=== PATIENT | female | born 1985 | race Caucasian/White ===

== ENCOUNTER 2018-04-08 14:09 | Emergency (ER) | payer OTHER ==
[2018-04-08 14:16] VITALS: O2SAT 100
[2018-04-08] MEDS ORDERED: Sodium Chloride 0.9% 1,000 ML IV STA (15:11)
--- NOTE | 2018-04-08 16:08 | ED PDOC ---
HPI: Headache Time Seen by Provider: 04/08/18 15:01 Chief Complaint (Nursing): Headache Chief Complaint (Provider): Headache History Per: Patient History/Exam Limitations: no limitations Onset/Duration Of Symptoms: Hrs Current Symptoms Are (Timing): Still Present Additional Complaint(s): 32 y/o female with no significant PMHx presents to the ED for evaluation of a headache, onset one day ago. Patient reports pain is located in the back of the head radiating down the neck, back and right leg. Patient report pain is associated with eye pain, urinary frequency, generalized weakness and dizziness/lightheadedness. Patient describes pain in right distal foot as a burn ing sensation. Patient reports of last taking Tylenol last night. Otherwise, patient denies abdominal pain, constipation, leg weakness, chest pain, shortness of breath, rhinorrhea, numbness, incontinence, injury and sick contacts. No constipation. Headaches is not worst in her life. PMD: non [facility] Provider Past Medical History Reviewed: Historical Data, Nursing Documentation, Vital Signs Vital Signs: Last Vital Signs Temp 98.6 F 04/08/18 14:15 Pulse 90 04/08/18 14:15 Resp 18 04/08/18 14:15 BP 154/87 H 04/08/18 14:15 Pulse Ox 100 04/08/18 14:15 - Medical History PMH: No Chronic Diseases - Surgical History Surgical History: No Surg Hx - Family History Family History: States: Unknown Family Hx - Living Arrangements Living Arrangements: With Family - Home Medications Home Medications: Ambulatory Orders Medication Instructions Recorded Diazepam [Valium] 2 mg PO BID PRN #6 tab 04/08/18 Ibuprofen [Motrin] 600 mg PO TID 7 Days tab 04/08/18 - Allergies Allergies/Adverse Reactions: Allergies Allergy/AdvReac Type Severity Reaction Status Date / Time No Known Allergies Allergy Verified 04/08/18 14:17 Review of Systems ROS Statement: Except As Marked, All Systems Reviewed And Found Negative Constitutional: Positive for: Weakness Eyes: Positive for: Pain Cardiovascular: Negative for: Chest Pain Respiratory: Negative for: Shortness of Breath Gastrointestinal: Negative for: Abdominal Pain, Constipation Genitourinary Female: Positive for: Frequency Musculoskeletal: Positive for: Neck Pain, Back Pain, Leg Pain (R) Neurological: Positive for: Headache, Dizziness (LIGHTHEADEDNESS). Negative for: Weakness, Numbness Physical Exam - Reviewed Nursing Documentation Reviewed: Yes Vital Signs Reviewed: Yes - Physical Exam Appears: Positive for: No Acute Distress Head Exam: Positive for: ATRAUMATIC, NORMAL INSPECTION, NORMOCEPHALIC Skin: Positive for: Normal Color, Warm, Dry Eye Exam: Positive for: Normal appearance, EOMI, PERRL ENT: Positive for: Normal ENT Inspection. Negative for: Nasal Congestion Neck: Positive for: Trachea Midline. Negative for: Normal (Muscle tightness to the back of the neck.) Cardiovascular/Chest: Positive for: Regular Rate, Rhythm. Negative for: Murmur Respiratory: Positive for: Normal Breath Sounds. Negative for: Respiratory Distress Pulses-Dorsalis Pedis (L): 2+ Pulses-Dorsalis Pedis (R): 2+ Gastrointestinal/Abdominal: Positive for: Soft. Negative for: Tenderness Back: Positive for: Other (Mild tenderness to the right lower back. Muscle tightness to the right lower back.) Extremity: Positive for: Normal ROM (of all extremities). Negative for: Tenderness, Pedal Edema, Calf Tenderness, Deformity Neurologic/Psych: Positive for: Alert, yoga teacher II-XII, Oriented (x3). Negative for: Motor/Sensory Deficits, Aphasia, Facial Droop - Laboratory Results Result Diagrams: 04/08/18 15:57 04/08/18 15:57 Lab Results: no acute - ECG ECG: Positive for: Interpreted By Me, Viewed By Ne ECG Rhythm: Positive for: Normal QRS, Normal ST Segment, Sinus Rhythm O2 Sat by Pulse Oximetry: 100 (RA) Pulse Ox Interpretation: Normal - CT Scan/US ct Other Rad Studies (CT/US): Read By Radiologist Other Rad Interpretation: no acute - Progress ED Course And Treament: 1733: Stable. AAOx3. Pain free. Tolerated PO. Fu with pcp. Likely muscle spasms. Medical Decision Making Medical Decision Making: Time: 1511 Plan: -- CT Cervical Spine w/o Contrast -- CT Head w/o Contrast -- EKG -- CMP -- Troponin I -- ED Urine Dipstick -- ED Urine -- CBC with Differentials -- Sodium Chloride IV 1000 mls/hr -- Toradol 15 mg IVP -- Valium 5 mg PO Scribe Attestation: Documented by Anel Rose, acting as a scribe for Diony Gutierrez MD. Provider Scribe Attestation: All medical record entries made by the Scribe were at my direction and personally dictated by me. I have reviewed the chart and agree that the record accurately reflects my personal performance of the history, physical exam, medical decision making, and the department course for this patient. I have also personally directed, reviewed, and agree with the discharge instructions and disposition. Disposition - Clinical Impression Clinical Impression: Muscle spasm, Dizziness - Patient ED Disposition Is Patient to be Admitted: No Counseled Patient/Family Regarding: Studies Performed, Diagnosis, Need For Followup, Rx Given - Disposition Referrals: [facility] [Outside] - 04/09/18 Disposition: Routine/Home Disposition Time: 17:37 Condition: STABLE Additional Instructions: Return if not better in 3 days. Prescriptions: Diazepam [Valium] 2 mg PO BID PRN #6 tab PRN Reason: Muscle Spasm Ibuprofen [Motrin] 600 mg PO TID 7 Days tab Instructions: Dizziness, Nonvertigo, (DC), Muscle Spasms (DC)
[2018-04-08 16:27] LABS: BASO % 0.5 % (0.0-2.0); EOS # 0.1 K/uL (0.0-0.7); EOS % 1.1 % (0.0-4.0); HEMOGLOBIN 13.5 g/dL (12.0-16.0); LYMPH # 2.5 K/uL (1.0-4.3); LYMPH % 33.7 % (20.0-40.0); MEAN CELL VOLUME 80.2 fl (81.0-99.0); MEAN CORPUSCULAR HGB CONC 32.4 g/dL (33.0-37.0); MEAN PLATELET VOLUME 9.1 fl (7.2-11.7); MONO # 0.5 K/uL (0.0-0.8); MONO % 6.6 % (0.0-10.0); NEUT # 4.2 K/uL (1.8-7.0); NEUT % 58.1 % (50.0-75.0); RBC 5.2 Mil/uL (3.80-5.20); WHITE BLOOD COUNT 7.3 K/uL (4.8-10.8)
--- NOTE | 2018-04-08 16:30 | CT ---
Date of service: 04/08/2018 PROCEDURE: CT HEAD WITHOUT CONTRAST. HISTORY: headache COMPARISON: None available. TECHNIQUE: Axial computed tomography images were obtained through the head/brain without intravenous contrast. Radiation dose: Total exam DLP = 815.4 mGy-cm. This CT exam was performed using one or more of the following dose reduction techniques: Automated exposure control, adjustment of the mA and/or kV according to patient size, and/or use of iterative reconstruction technique. FINDINGS: HEMORRHAGE: No intracranial hemorrhage. BRAIN: Normal napoles-white matter differentiation and density are appreciated throughout the cerebrum and cerebellum with the brainstem appearing unremarkable as well. There is no mass effect. There is no suspicious extra-axial fluid collection and the midline brain anatomy appears diffusely unremarkable. VENTRICLES: Unremarkable. No hydrocephalus. CALVARIUM: Unremarkable. PARANASAL SINUSES: Unremarkable as visualized. No significant inflammatory changes. MASTOID AIR CELLS: Unremarkable as visualized. No inflammatory changes. OTHER FINDINGS: None. IMPRESSION: Unremarkable noncontrast head CT.
--- NOTE | 2018-04-08 16:44 | CT ---
Date of service: 04/08/2018 PROCEDURE: CT Cervical Spine without contrast HISTORY: neck pain COMPARISON: None available. TECHNIQUE: Axial computed tomography images were obtained of the cervical spine without the use of intravenous contrast. Coronal and sagittal reformatted images were created and reviewed. Radiation dose: Total exam DLP = 363.87 mGy-cm. This CT exam was performed using one or more of the following dose reduction techniques: Automated exposure control, adjustment of the mA and/or kV according to patient size, and/or use of iterative reconstruction technique. FINDINGS: VERTEBRAE: No fracture. Straightened curvature without spondylolisthesis. No destructive bony lesion. DISCS/SPINAL CANAL/NEURAL FORAMINA: No significant central canal or neural foraminal stenosis. Discs heights are grossly preserved. Limited circumferential disc osteophyte complex seen at C5-6 without stenosis resulting. PREVERTEBRAL AND PARASPINAL SOFT TISSUES: Unremarkable. OTHER FINDINGS: Incidental 6 mm nodule or cyst right lobe thyroid gland. IMPRESSION: Straightening the cervical curvature without fracture or spondylolisthesis appreciable. Limited disc osteophyte complex C5-6 without central canal stenosis evident. Incidental 6 mm nodule or cyst right lobe thyroid gland.
[2018-04-08 16:50] LABS: ALB/GLOB RATIO 1.3 (1.0-2.1); ALBUMIN 4.5 g/dL (3.5-5.0); ALT/SGPT 18 U/L (9-52); AST/SGOT 20 U/L (14-36); BLOOD UREA NITROGEN 14 mg/dl (7-17); CALCIUM 9.7 mg/dL (8.4-10.2); GFR NON-AFRICAN AMERICAN > 60
[2018-04-08 18:13] VITALS: BP 114/69; PULSE 86; RESP 20; TEMP 98.1
--- NOTE | 2018-04-09 06:48 | CARD ---
APPROVED REPORT Date of service: 04/08/2018 EKG Measurement Heart [id number] <Conclusion> Normal sinus rhythm Normal ECG
== END 2018-04-08 18:27 | disposition home or self-care (01) ==
LOC: H.ER 14:09
DX: R42 Dizziness and giddiness (principal); M62.838 Other muscle spasm; E04.1 Nontoxic single thyroid nodule
CPT/HCPCS: 70450; 72125; 80053; 81025; 84484; 85025; 93005; 96361; 96374; 99285; J1885; J7030